=== PATIENT | male | born 1960 ===

== ENCOUNTER 2017-12-19 00:46 | Emergency (ER) | payer MEDICARE, MEDICAID ==
[2017-12-19] MEDS ORDERED: EPINEPHrine SYR 0.1 MG/ML* (1:10,000) SYRINGE ONE (00:50)
[2017-12-19 00:57] VITALS: BP 00/00
--- NOTE | 2017-12-19 01:04 | ED ---
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 Per EMS, the pt had a witness cardiac arrest event. BLS was administered immediately. In the ambulance, ALS was administered by EMS for 15 minutes before a pulse was felt, and the pt was in rapid Afib before going into a bradycardic rate. He had some PVCs without pulse on 12 lead EKG. Pulses returned after the second epinephrine and bicarb were administered. ALS was continued until arrival to the ED with no return of pulse and pacing in asystole. The pt is a diabetic, with blood glucose reading of 206. - History of Current Complaint Chief Complaint: EDCardiacArrest Stated Complaint: CARDIAC ARREST Time Seen by Provider: 12/19/17 00:46 Hx Obtained From: EMS Hx From Patient Unobtainable Due To: Extremis - Pt in cardiac arrest upon arrival of EMS. Onset/Duration: Minutes/Hours: - 30 minutes Arrest Witnessed: Yes Down-time Before Basic Life Support Initiated: Down-time before BLS initiated: - immediatley Down-time Before Advanced Life Support Initiated: Down-time before ALS initiated : Was AED Placed on Patient: Yes - Prehospital Findings Circulation/Rhythm: Asystole, Sinus Bradycardia - Prehospital Response Circulation/Rhythm: Asystole, Sinus Bradycardia - Past Medical History Past Medical History: Unobtainable Due to Extremis - Pt in cardiac arrest upon arrival., Other: - diabetes - Family History Family History: Unobtainable Due to Extremis - Pt in cardiac arrest upon arrival. - Social History Social History: Unobtainable Due to Extremis - Pt in cardiac arrest upon arrival., Lives in Nursing Care [facility] - Review of Systems Review of Systems: Unobtainable Due to Extremis - Pt in cardiac arrest upon arrival. Physical Examination - Physical Examination Resuscitation: Unsuccessful - ED Findings Airway: Patent Breathing: Apnea Circulation/Rhythm: Asystole Disability/Neurological: Unresponsive - ED Intervention Airway: Oral Airway Breathing: By ED Physician, Intubation: Circulation/Rhythm: Chest Compressions - ED Response Airway: Gag Reflex Absent Breathing: Equal Breath Sounds, ETT in Airway:, Placement Confirmed by Capnometer Circulation/Rhythm: Asystole, PEA, Spontaneous Pulses Absent - Glascow Coma Score Eye Openin - None Motor: 1 - None Verbal: 1 - None Coma Scale Total: 3 Diagnostics - Vital Signs Vital Signs Temp Pulse Resp BP Pulse Ox 12/19/17 00:46 96.8 F 0 0 60 - Laboratory Lab Statement: Any lab studies that have been ordered have been reviewed, and results considered in the medical decision making process. Cardiac Resus. Course/Dx - Course Course Of Treatment: Resuscitation was attempted but the patient never developed any pulse. There were some transient periods of PEA. After reasonable attempts at resuscitation were clearly unsuccessful, the efforts were abandoned and the patient was declared . - Cardiac Resuscitation Differential Dx/HPI/PQRI: Asystole, Cardiac Rhythm Disturbance, Pulseless Electrical Activity, Sudden - Diagnoses Provider Diagnoses: Sudden Discharge - Sign-Out/Discharge Documenting (check all that apply): Patient Departure - Discharge Plan Condition: Disposition: Referrals: No Primary Care Phys,NOPCP [Primary Care Provider] - - Billing Disposition and Condition Condition: Disposition: Attestations Scribe Attestation: This is kole Villegas documenting for attending Dr. Marlo Cleaning MD. User Type: Provider with Scribe Provider Attestation: The documentation recorded by the scribe accurately reflects the service I personally performed and the decisions made by me.
== END 2017-12-19 04:33 | disposition expired ==
LOC: ED 00:46
DX: I46.9 Cardiac arrest, cause unspecified (principal); R00.1 Bradycardia, unspecified; E11.9 Type 2 diabetes mellitus without complications
CPT/HCPCS: 99285; J0171